=== PATIENT | male | born 1970 | race Caucasian/White ===

== ENCOUNTER 2025-04-14 08:50 | Emergency (ER) | payer BC, SELFPAY ==
[2025-04-14 08:52] VITALS: BP 112/80
[2025-04-14 09:24] VITALS: BMI 28.5
--- NOTE | 2025-04-14 10:23 | ED.GENMED ---
History of Present Illness
General
Chief Complaint: Musculo-Skeletal Complaint
Time Seen by Provider: 04/14/25 09:55
History of Present Illness
History of Present Illness:
Patient is a 55-year-old man with recent MT status post stent presenting to the emergency department Flare. Patient states about a week after the MT he developed a gout flare of his right foot and knee. He does have history of gout. He went to
[facility] who started him on colchicine and prednisone. He finished the prednisone last week. Symptoms have been worsening. He states that his foot has improved but his right knee is worse. No fevers chills. No redness or warmth. No traumatic
events. He is on a blood thinner secondary to the MT so he cannot take NSAIDs. He is not on a uric acid lowering medication. No known tick bites. This does feel similar to prior gout flares.
Phy Exam
Physical Exam
Physical Exam:
GENERAL: in no acute distress
HEENT: normocephalic, extraocular movements intact, moist oral mucosa
NECK: normal inspection
RESPIRATORY: no respiratory distress
CARDIOVASCULAR: regular rate and rhythm
EXTREMITIES: Right knee swelling, no warmth, no redness, right foot slightly swollen though per patient improving.
NEUROLOGIC: awake and alert, moves all extremities
SKIN: warm
Course
Orders/Labs/Results
Orders:
Orders
04/14/25 10:18
CR Knee- Right 4 Or More View* Urgent
Comment:
Reason For Exam: swelling
04/14/25 10:25
Oxycodone [Roxicodone] 5 mg PO NOW STA
04/14/25 12:40
Prednisone [Deltasone] 60 mg PO NOW STA
Vital Signs
Initial and Last Documented VS:
Initial Vital Signs
Temp Pulse Resp BP Pulse Ox
98.3 F 74 18 112/80 98
04/14/25 08:52 04/14/25 08:52 04/14/25 08:52 04/14/25 08:52 04/14/25 08:52
Last Documented Vital Signs
Temp Pulse Resp BP Pulse Ox
98.3 F 74 18 112/80 98
04/14/25 08:52 04/14/25 08:52 04/14/25 08:52 04/14/25 08:52 04/14/25 10:25
MDM/Problems Addressed
Differential Diagnosis Includes:
Patient is a 55-year-old man presenting to the emergency department with right knee swelling. On arrival patient is afebrile. On exam he does have significant swelling of the right knee. It is not warm. History exam less likely to be septic
arthritis. Likely gout. No traumatic events to suggest fracture. Will obtain x-ray. Will complete arthrocentesis. Will pain control.
*Pulse Oximetry
SaO2: 98
Oxygen Mode of Delivery: Room air
Patient hypoxic: no
*Critical Care Note
Total Time (30-74mins, 75-104mins- exclusive of procedures): Not Applicable
Update Note
Update Note:
X-ray per my interpretation with no obvious fracture. Small joint effusion. We did attempt arthrocentesis though unsuccessful secondary to patient unable to tolerate it. I did discuss with [facility] orthopedics who is in agreement with treating as
gout. Will give steroid for 5 days then taper. Patient will follow-up with systems accountant about when he can add an anti-inflammatory to his regimen. He will follow-up with PCP to get on a uric acid lowering medication. All questions answered.
Patient stable for discharge.
ED Attending Note
-
Portions of this chart may have been created with voice recognition software.� Occasional wrong word or��sound alike� substitutions may have occurred due to the inherent limitations of voice recognition software.
Discharge Plan
Departure
Patient Disposition: Home (Routine Discharge)
Date of Disposition: 04/14/25
Time of Disposition: 12:40
Patient with high blood pressure during this ER visit?: No
Discharge Problem:
Gout
Instructions: Gout - ED (DC)
Prescriptions:
New
prednisone 20 mg tablet
60 mg PO DAILY Qty: 21 0RF
Rx Instructions:
60mg x5 days
40 x3 days
20x 3 days
Referrals:
Gaurav Correia MD [Family Provider]
Activity Restrictions/Additional Instructions:
You were seen in the Emergency Department today for gout please make sure you take the steroids as prescribed. Your first dose was given here. Please follow-up with your systems accountant to determine when you can start anti-inflammatory medications.
We would like for you to follow up with your primary care physician for further evaluation. If you experience fever, worsening of your symptoms, or develop any other new or concerning symptoms, please return to the Emergency Department immediately.
Please see the attached sheet for additional information.
Interventions
Interventions:
*Risk Screen - Suicide Last Done: 04/14/25 08:52
*General Assessment Last Done: 04/14/25 09:24
*Neglect/Abuse Screening Last Done: 04/14/25 08:52
*ED- Fall Risk Assessment Last Done: 04/14/25 09:24
*ED COVID-19 Vaccine History Last Done: 04/14/25 09:24
*ED Influenza Vaccine History Last Done: 04/14/25 09:24
ED-Musculoskeletal Assessment Last Done: 04/14/25 09:24
Discharge Date and Time
Print Language: POLISH
[2025-04-14] MEDS: ROXICODONE 5 MG PO (10:33)
[2025-04-14] MEDS: DELTASONE 60 MG PO (12:50)
[2025-04-14 12:51] VITALS: BP 118/74
== END 2025-04-14 12:57 | disposition home or self-care (01) ==
LOC: EMR 08:50
PROVIDERS: EMERGENCY PHYSICIAN Student in an Organized Health Care Education/Training Program; FAMILY PHYSICIAN Student in an Organized Health Care Education/Training Program
DX: M10.071 Idiopathic gout, right ankle and foot (principal); I25.2 Old myocardial infarction
CPT/HCPCS: 99283; 73564

== ENCOUNTER 2025-05-16 22:20 | Inpatient (IN) | payer BC, SELFPAY ==
[2025-05-16 16:39] VITALS: BP 124/87
--- NOTE | 2025-05-16 19:29 | ED.MUSCINJ ---
HPI-Injury
General
Chief Complaint: Musculo-Skeletal Complaint
Source: patient
Exam Limitations: none
Time Seen by Provider: 05/16/25 18:41
History of Present Illness-Injury
Initial Injury comments:
55-year-old male presents with progressively worsening pain and swelling to the right knee starting about 5 days ago and getting worse. He notes chills at times. No known injury. He states he was thought to have gout 2 months ago. He has been on
prednisone for that. 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 He is on aspirin and Brilinta. No chest pain or shortness of breath. He recently got back from a trip from [place]
Phy Exam
Physical Exam
Physical Exam:
General: Well-appearing male no acute respiratory distress
HEENT normal cephalic atraumatic
Musculoskeletal exam: Right knee with large effusion tender diffusely with overlying erythema. He is about 10 degrees shy of full extension and flexes to about 50 or 60 degrees.
Skin: Erythema noted over the anterior right borges spreading into the lateral aspect of the right kneeNo open wounds
Vascular: No calf tenderness 2+ DP pulse right foot
Injury Course
Orders/Labs/Results
Orders:
Orders
05/16/25 16:45
CR Knee- Right 4 Or More View* Urgent
Comment:
Reason For Exam: swelling
05/16/25 16:53
US Legs, Right [US Periph Venous LOWER Ext RT] Urgent
Comment:
Reason For Exam: swelling, pain
05/16/25 19:27
Body Fluid Cell Count Urgent
What is the Body Fluid: joint
Date Specimen was Collected: 05/16/25
Time Specimen was Collected: 19:05
Comment: with DIFF
Body Fluid Crystals Urgent
What is the Body Fluid: joint
Date Specimen was Collected: 05/16/25
Time Specimen was Collected: 19:05
CRP [C-Reactive Protein] Urgent
Complete Blood Count/With Diff Urgent
Comprehensive Metabolic Panel Urgent
Lyme Progressive Urgent
Sed Rate [Erythrocyte Sed Rate] Urgent
Fluid Culture with Gram Stain Urgent
XOCHILT Source: Joint Fluid
Specimen Description:
Date Specimen was Collected: 05/16/25
Time Specimen was Collected: 19:05
Gram Stain Stat
XOCHILT Source: Joint
Specimen Description:
Date Specimen was Collected: 05/16/25
Time Specimen was Collected: 19:05
05/16/25 21:10
Vancomycin [Vancocin] 2,000 mg 0.9% Sodium Chloride 500 ml [Nss] 500 ml IV NOW
Abnormal Lab Results
05/16/25
19:27
WBC 14.8 H 10^3/uL
(4.8-10.8)
RBC 4.53 L 10^6/uL
(4.70-6.10)
Abs Immat Gran (auto) 0.1 H 10^3/uL
(0-0.05)
Absolute Neuts (auto) 10.1 H 10^3/uL
(1.4-6.5)
Absolute Monos (auto) 1.8 H 10^3/uL
(0.1-0.6)
Immature Gran % 0.8 H %
(0-0.5)
Lymphocytes % 17.9 L %
(20.5-51.1)
Monocytes % 12.1 H %
(1.7-9.3)
ESR 42 H mm/hour
(0-20)
Sodium 134 L mmol/L
(135-145)
Glucose 107 H mg/dl
(70-99)
ALT 59 H U/L
(0-50)
C-Reactive Protein 265.00 H mg/L
(0.0-10.00)
05/16/25 19:27
05/16/25 19:27
MDM/Problems Addressed
Differential Diagnosis Includes:
I rechecked the patient's temperature in the room and is 100.8. Right knee is with effusion and tender and erythema. Consider septic arthritis although etiology of this would be unclear versus gouty arthritis versus hemarthrosis
X-ray of the right knee and ultrasound of the right leg was ordered through triage which I reviewed both. X-ray demonstrates a large effusion but no obvious acute bony abnormality. Ultrasound of the right leg is positive for Stuart's cyst but no
DVT.
Verbal consent was obtained for aspiration of the right knee to provide therapeutic and diagnostic purposes. Right knee was sterilely aspirated using 18-gauge needle. A total of approximately 80 cloudy yellow-colored fluid was aspirated. This
will be sent for fluid analysis including cell count Gram stain and culture and crystal testing.
Labs ordered on the blood including Lyme test, sed rate CRP CBC
*Pulse Oximetry
SaO2: 96
Oxygen Mode of Delivery: Room air
Patient hypoxic: no
*Critical Care Note
Total Time (30-74mins, 75-104mins- exclusive of procedures): Not Applicable
Update Note
Update Note:
Labs reviewed. White blood cell count 14.8. Sed rate 42 CRP 265. Cell count in the fluid analysis demonstrates white cells of 60,200 with 91% PMNs. There are monosodium urate crystals noted in the fluid analysis. Patient does have a fever here
with leukocytosis. Tach arthritis versus gouty arthritis on the differential. Discussed with orthopedics. Orthopedics recommended keeping in hospital starting on IV antibiotics pending cultures of the joint fluid. Vancomycin ordered Tylenol
ordered additional pain control ordered.
ED Attending Note
-
Portions of this chart may have been created with voice recognition software.� Occasional wrong word or��sound alike� substitutions may have occurred due to the inherent limitations of voice recognition software.
Discharge Plan
Departure
Patient Disposition: Admit
Date of Disposition: 05/16/25
Time of Disposition: 21:25
Presentation/result/management discussed w/ accepting MD/DO: Hospitalist
Discharge Problem:
possible septic arthritis
Prescriptions:
No Action
prednisone 20 mg tablet
60 mg PO DAILY Qty: 21 0RF
Rx Instructions:
60mg x5 days
40 x3 days
20x 3 days
Referrals:
Gaurav Correia MD [Family Provider]
Interventions
Interventions:
*Risk Screen - Suicide Last Done: 05/16/25 16:39
*General Assessment Last Done: 05/16/25 16:39
*Neglect/Abuse Screening Last Done: 05/16/25 16:39
*ED COVID-19 Vaccine History Last Done: 05/16/25 19:53
*ED Influenza Vaccine History Last Done: 05/16/25 19:53
[facility] Fall Risk Assessment Tool Last Done: 05/16/25 19:52
ED-Musculoskeletal Assessment Last Done: 05/16/25 19:31
Discharge Date and Time
Print Language: TURKISH
[2025-05-16 19:41] LABS: Hematocrit 40.2 % (39.0-52.0); Hemoglobin 14.0 g/dL (13.0-18.0); Mean Corp Hgb Conc. 34.8 g/dL (33.0-37.0); Mean Corpuscular Volume 88.7 fL (80.0-94.0); Nucleated Red Blood Cells % 0 % (-); Platelet Count 251 10^3/uL (130-400); Red Cell Dist. Width 13.1 % (11.5-14.5)
[2025-05-16 19:52] VITALS: BMI 27.3
[2025-05-16 19:58] LABS: ALT (SGPT) 59 U/L (0-50); AST (SGOT) 33 U/L (17-59); Albumin 4.4 g/dl (3.5-5.0); Alkaline Phosphatase 64 U/L (38-126); Blood Urea Nitrogen 15 mg/dl (9-20); Calcium 9.5 mg/dl (8.4-10.2); Carbon Dioxide 25 mmol/L (22-30); Chloride 101 mmol/L (98-107); Estimated Creatinine Clearance 78 ml/min; Glucose 107 mg/dl (70-99); Potassium 4.2 mmol/L (3.5-5.1); Sodium 134 mmol/L (135-145); Total Protein 7.4 g/dl (6.3-8.2); eGFR > 60.00
[2025-05-16 20:17] LABS: Body Fluid Second Tech EYM; C-Reactive Protein 265.00 mg/L (0.0-10.00)
[2025-05-16] MEDS: TYLENOL 1000 MG PO (21:39)
[2025-05-16] MEDS: DILAUDID 0.5 MG IV (21:39)
[2025-05-16] MEDS: VANCOCIN 540 MG IV (21:39)
--- NOTE | 2025-05-16 21:40 | HPS.HSE ---
Addendum entered and electronically signed by Jad Morales DO 05/16/25 23:40:
Patient seen and examined independently. Agree with findings and plan as set forth by TAMIR Bergman.
Patient is a 55y M with PMH significant for ASCVD and gout who presents to ED complaining of R knee pain and swelling. Patient states that symptoms started last Thursday. No known injury or trauma. He has had intermittent chills at home. His
pain and associated redness has increased since that time and he presented to the ED this evening for further evaluation.
Patient notes that he had a flare of gout involving the R foot and R knee about one month ago. This took almost 3 weeks to resolve.
He is s/p PTCA with stent in March of this year.
Ass:
Right Knee Pain / Swelling
ASCVD
Gout
Plan:
Admit for further evaluation and treatment.
Symptoms concerning for septic arthritis.
Tap done in the ED does show monosodium urate crystal / gout.
Also > 60k WBC in synovial fluid. Grams stain is pending.
IV abx and pain control for now.
Ortho consulted for additional recommendations.
If Grams stain / cultures negative - begin systemic steroids for gout therapy.
? intra-articular steroid if no evidence of infectious etiology.
Continue DAPT given recent PCI / stent (March).
Original Note:
Family Physician
-
Family Physician: Gaurav Correia MD
Chief Complaint
-
right knee edema, redness
History of Present Illness
55-year-old male with pMH for DC, GOUT presented to us with progressively worsening pain and swelling,redness to the right knee since Thursday. patient stated worsening redness and swelling. he noted chills at home. denied any trauma. denied ZHANG,
dizzy or syncope.denied chest pain, sob, congestion, cough. denied abdominal pain,n,v,d. denied dysuria or hematuria. starting about 5 days ago and getting worse. He notes chills at times. No known injury. He states that he was here in March
due to pain in the same knee and was treated with colchicine and prednisone with improvement.
concern for septic arthritis. vanco given in ER. admitting for further management.
Medical History
Past Medical History
Past Medical History: Reports Other
Additional Past Medical History:
DC, GOUT
Past Surgical History: Reports None
Social History
Tobacco: Non-smoker
Alcohol: Occasional
Drug: None
Personal:
Living: With Family
Family History
Family History: Not pertinent
Allergies / Home Medications
Allergies reflects when Allergies were last updated in [facility].
Home Medications with original date entered in [facility]
Allergy/Medication List:
Allergies
Allergy/AdvReac Type Severity Reaction Status Date / Time
No Known Allergies Allergy Verified 05/16/25 16:44
Home Medications
prednisone 20 mg tablet 60 mg (3 x 20 mg) PO DAILY #21 tabs 04/14/25
Review of Systems
-
Constitutional: Reports No Symptoms, Fatigue and Chills
EENT: Reports No Symptoms
Respiratory: Reports No Symptoms
Cardiac: Reports No Symptoms
Abdomen/GI: Reports No Symptoms
: Reports No Symptoms
Musculoskeletal: Reports Other (right knee pain, swelling)
Skin: Reports No Symptoms
Neurological: Reports No Symptoms
Endocrine: Reports No Symptoms
Hematologic/Lymphatic: Reports No Symptoms
Psych: Reports No Symptoms
Physical Exam
Vital Signs
Vital Signs
Temp Pulse Resp BP Pulse Ox
100.8 F H 80 20 124/87 96
05/16/25 19:01 05/16/25 16:39 05/16/25 16:39 05/16/25 16:39 05/16/25 19:33
Physical Exam
General: Well Developed, Well Nourished and No Apparent Distress
HEENT: NormoCephalic, Moist mucous membranes and Atraumatic
Respiratory: Clear
Cardiac: S1/S2 and Regular Rhythm; No Murmur or Rub
GI: Soft, Non Tender, Non Distended and Normal Bowel Sounds; No Organomegaly
Rectal: Deferred by Provider
Musculoskeletal: No Clubbing, No Cyanosis and Other (right knee swelling, pain, redness)
Skin: No Rash
Neuro: AO x 3 and Nonfocal/grossly intact
Psych: Calm
Laboratory Results
-
05/16/25 19:27
05/16/25 19:27
Laboratory Results
Total Bilirubin 1.1 mg/dl (0.2-1.3) 05/16/25 19:27
AST 33 U/L (17-59) 05/16/25 19:27
ALT 59 U/L (0-50) H 05/16/25 19:27
Alkaline Phosphatase 64 U/L (38-126) 05/16/25 19:27
Data Reviewed
-
Diagnostic Radiology: Report Reviewed by me
Lab Data: Labs Reviewed by me
Impression/Plan
-
#right knee effusion, erythema concern for septic arthritis
-joint fluid sent an cultures pending
-iv Vanco and ceftriaxone continued
-ortho consulted
-wbc 14.8, temp 100.8
-ESR 42,CRP 265.00
-Duplex with no evidence of deep venous thrombosis of the right lower extremity.Small popliteal/Stuart's cyst.Findings likely representing complex suprapatellar effusion.
-knee x ray with No acute fracture or dislocation.Large knee joint effusion.
#DC
-on asa
-hold Brilinta
-statin
#DVT prophylaxis
-scd
#CODE status
-full code
[2025-05-16 22:00] VITALS: BP 122/74
[2025-05-16 23:05] VITALS: BP 133/72; BMI 27.9
[2025-05-17] MEDS: STERILE WATER FOR INJECTION 10 ML IV ×2 (00:07→23:41)
[2025-05-17] MEDS: ROCEPHIN 1000 MG IV ×2 (00:07→23:41)
--- NOTE | 2025-05-17 00:57 | PTCARENOTE ---
patient arrived from ED via stretcher. stand and pivot to bed with assistance from staff. assessment completed. AOx3. oriented to room. POC ongoing.
[2025-05-17 06:45] LABS: Hematocrit 37.6 % (39.0-52.0); Hemoglobin 12.9 g/dL (13.0-18.0); Mean Corp Hgb Conc. 34.3 g/dL (33.0-37.0); Mean Corpuscular Volume 90.0 fL (80.0-94.0); Platelet Count 212 10^3/uL (130-400); Red Cell Dist. Width 13.2 % (11.5-14.5)
[2025-05-17 07:00] VITALS: BP 132/73
[2025-05-17 07:42] LABS: Blood Urea Nitrogen 12 mg/dl (9-20); Calcium 8.9 mg/dl (8.4-10.2); Carbon Dioxide 28 mmol/L (22-30); Chloride 106 mmol/L (98-107); Estimated Creatinine Clearance 78 ml/min; Glucose 100 mg/dl (70-99); Potassium 4.3 mmol/L (3.5-5.1); Sodium 138 mmol/L (135-145); eGFR > 60.00
[2025-05-17] MEDS: BRILINTA 90 MG PO ×2 (07:56→20:10)
[2025-05-17] MEDS: LOW STRENGTH ASPIRIN 81 MG PO (07:56)
[2025-05-17] MEDS: LIPITOR 80 MG PO (07:56)
[2025-05-17] MEDS: TYLENOL 650 MG PO ×3 (08:04→21:30)
--- NOTE | 2025-05-17 09:17 | PHA.VAN.IN ---
Assessment
- Assessment
Renal Function: Unknown baseline
Concomitant Antimicrobials: CEFTRIAXONE
AUC Dosing Plan
- Dosing Variables
Dosing Weight (kg): 88.22
Dosing CrCl (ml/min): 78
Vd coefficient (L/kg): 0.7
- Empiric Dosing
Initial / Loading Dose: 2000 MG-05/16 21:39
Maintenance Regimen: 1000 MG Q12
Estimated AUC (mcg*h/mL): 485
Estimated Peak (mcg*h/mL): 28.7
Estimated Trough (mcg/ml): 13.4
Estimated Half Life (H): 10
- Monitoring
No levels ordered at this time: CONSIDER LEVELS THE NEXT FEW DAYS
Pharmacokinetics Vancomycin I
- -
Patient Age: 55
Patient Sex: Male
Vancomycin Day #: 1
Indication: Skin And Soft Tissue
Requesting Provider: STACI FERNANDES
Pertinent Antimicrobial Allergies:
NKDA
Height / Weight:
Height 5 ft 10 in
Actual Weight 88.224 kg
- Vital Signs / Lab Results
Temp Pulse Resp BP Pulse Ox
99.0 F 70 16 132/73 97
05/17/25 07:00 05/17/25 07:00 05/17/25 07:00 05/17/25 07:00 05/17/25 07:00
Lab Results - Hematology
05/16/25 05/17/25
19:27 06:08
WBC 14.8 H 9.6
Lab Results - Chemistry
05/16/25 05/17/25
19:27 06:08
BUN 15 12
Creatinine 1.1 1.1
Estimated Creat Clear 78 78
Albumin 4.4
--- NOTE | 2025-05-17 09:22 | W.PN.UPDATE ---
Update Note
Progress Note Update
*Full H&P to follow*
55-year-old male right knee pain and effusion with positive aspiration for gout however with positive monosodium urate crystals and elevated white count with elevated PMN ratio concerning for septic arthritis. Aspiration performed prior to
antibiotics. Will continue with close monitoring of aspiration results for consideration of operative debridement and irrigation for septic arthritis.
--- NOTE | 2025-05-17 11:03 | W.PN.HOSP.TC ---
Today's Communication/Plan
-
see outlined plan below
Assessment / Plan
Assessment / Plan
Assessment:
R knee pain with effusion
- Knee Xray: No acute fracture or dislocation
- ESR 42,CRP 265.00
- s/p aspiration /3 with elevated WBC >15713 and high PMN ratio
- ddx: gouty arthritis (monosodium urate crystals seen) vs septic arthritis
- follow GS/Culture; on empiric Vancomycin/Rocephin. May need washout if positive culture
- if cultures negative, can start steroids + colchicine for Articular gout flare
- Ortho following
- would benefit from OP Rheum evaluation for chronic management.
CAD hx of [place] 03/2025 s/p stent
- on ASA/Brilinta/Statin
- if washout planned and requiring Brilinta hold, will involve Cardiology service. Reviewed with Ortho
DVT ppx: SCDs
Code: Full
Anticipated Discharge: > 48 hours
Subjective/Interval History
-
Date of Service: May 17, 2025
reports mild knee pain - using Tylenol with good effect
R knee with swelling
denies fever/chills
Objective Data
-
Labs:
Laboratory Results
05/17/25
06:08
WBC 9.6
Hgb 12.9 L
Hct 37.6 L
Plt Count 212
Sodium 138
Potassium 4.3
Chloride 106
Carbon Dioxide 28
BUN 12
Creatinine 1.1
Glucose 100 H
Calcium 8.9
Vital Signs:
Vital Signs
Temp Pulse Resp BP Pulse Ox
99.0 F 70 16 132/73 97
05/17/25 07:00 05/17/25 07:00 05/17/25 07:00 05/17/25 07:00 05/17/25 07:00
I&O
05/16/25 05/17/25 05/18/25
06:59 06:59 06:59
Intake Total 480 / 480
Output Total 825 / 825
Balance -345 / -345
Physical Exam
-
General: No Apparent Distress
HEENT: Normocephalic and Atraumatic
Respiratory: Negative Wheezes
Cardiac: Regular Rhythm and S1/S2
GI: Soft and Nontender
Genito-urinary: No Costovertebral Tender
Musculoskeletal: Other (R knee joint effusion, decreased ROM)
Neuro: AO x 3
Psych: Calm
Data Reviewed
-
Total Time Spent with Patient (in minutes): 44
Labs: Labs Reviewed by me
[2025-05-17] MEDS: VANCOCIN 200 IV ×2 (11:59→17:01)
--- NOTE | 2025-05-17 14:50 | CM ---
Patient seen at bedside
IA completed
Dx: R knee pain with effusion
PMH: ASCVD and gout
Patient lives in a 2 story home with his , [address], flight of stairs to bedroom/bathroom
PLOF: independent, recently using crutches
Denies VN/Rehab, although states has a script for outpatient cardiac rehab (recent MO)
PCP: Dr. Correia
Pharmacy: [facility]
PLAN: Home, CM to continue to follow for needs
[2025-05-17 15:00] VITALS: BP 123/77
--- NOTE | 2025-05-17 19:24 | CON.ORTHO ---
Consultation
-
Date/Time Consultation Requested: 05/16/2025 2313
Date/Time Consultation Performed: 05/17/2025 0815
Requesting Provider: TAMIR Amado
Performing Provider: PETER Padilla, Dr. Rl Valiente
Reason for Consultation: R knee effusion
Consultation - Orthopedics
History
55M presented to ED regarding his right knee with recurrent effusion and pain. Onset of symptoms in mid-March initially seen at [facility] urgent care with suspect crystal arthropathy of his right knee and foot with a reported history of gout. He
had short term improvement of his foot but not of his knee and was seen at ED in late March with persisting symptoms of the right knee. He underwent an unsuccesful aspiration attempt of his right knee and was discussed with [facility] ortho who
recommended treatment for gout with high dose prednisone. He denies other aspirations or injections performed other than previous ED attempt. He has had some intermittent fevers/chills and worsend pain; he underwent a successful aspiration at
ED yesterday. He reports no histroy of chronic knee pain or prodromal symptoms. Reports mild improvement since aspiration
Allergies / Home Medications
Allergy/AdvReac Type Severity Reaction Status Date / Time
No Known Allergies Allergy Verified 05/16/25 16:44
�Medication �Instructions �Recorded
aspirin 81 mg chewable tablet 81 mg PO DAILY 05/16/25
atorvastatin 80 mg tablet 80 mg PO DAILY 05/16/25
ticagrelor 90 mg tablet 90 mg PO BID 05/16/25
Past Medical History: Reports Other
Additional Past Medical History:
AR, GOUT
Past Surgical History: Reports None
Social History
Tobacco: Non-smoker
Alcohol: Occasional
Drug: None
Personal:
Living: With Family
Family History
Family History: Not pertinent
Vital Signs / Lab Results
Temp Pulse Resp BP Pulse Ox
100.7 F H 74 16 123/77 98
12/03/25 15:00 05/17/25 15:00 05/17/25 15:00 05/17/25 15:00 05/17/25 15:00
PE:
General: WNWD NAD, STRONG
MSK: Focused exam of the right knee shows skin grossly intact with area of previous aspiration; large effusion. No significant erythema or edema. Knee ROM 10-70 and discomfort throughout. NVI L3-S1
IMAGING:
X-rays of the knee show well preserved joint spaces with no acute osseous abnormalities. No chondrocalcinosis
Labs:
ESR 42
CRP 265
WBC 14.8-->9.6
Aspiration:
WBCs: 62k
PMNs: 91.5
Positive monosodium urate crystals
05/17/25 06:08
05/17/25 06:08
Assessment / Plan
55M with recurrent knee pain and effusion with positive gout however with aspiration cell count with concerning results for possible infectious septic arthritis
-discussed results with patient; no current growth on cultures or pathology seen on gram stain and no indication patient was on antibiotics prior to his IV antibiotics being started on admission
-recommend continued relative rest and treatment for gout per primary.
-pending results, reviewed consideration of open versus arthroscopic debridement and irrigation of his knee.
-will make NPO @ MN as a precaution as potential culture results tomorrow if operative intervention is indicated.
-he may be WBAT in the interim but would avoid aggressive ROM for the time being pending workup results
Ortho surg will continue to follow.
[2025-05-17 23:00] VITALS: BP 128/69
[2025-05-18] MEDS: TYLENOL 650 MG PO ×2 (04:42→11:42)
[2025-05-18] MEDS: VANCOCIN 200 IV ×2 (05:17→17:51)
[2025-05-18 06:40] LABS: Hematocrit 35.5 % (39.0-52.0); Hemoglobin 12.3 g/dL (13.0-18.0); Mean Corp Hgb Conc. 34.6 g/dL (33.0-37.0); Mean Corpuscular Volume 90.3 fL (80.0-94.0); Nucleated Red Blood Cells % 0 % (-); Platelet Count 243 10^3/uL (130-400); Red Cell Dist. Width 13.1 % (11.5-14.5)
[2025-05-18 07:29] LABS: Blood Urea Nitrogen 12 mg/dl (9-20); Calcium 8.9 mg/dl (8.4-10.2); Carbon Dioxide 27 mmol/L (22-30); Chloride 105 mmol/L (98-107); Estimated Creatinine Clearance 86 ml/min; Glucose 132 mg/dl (70-99); Potassium 4.0 mmol/L (3.5-5.1); Sodium 136 mmol/L (135-145); eGFR > 60.00
[2025-05-18 07:39] VITALS: BP 120/75
--- NOTE | 2025-05-18 07:54 | W.PN.UPDATE ---
Update Note
Progress Note Update
Patient reports this morning that his right knee pain and swelling still persist. He has had Tmax 100.7 �F-large effusion noted with warmth and trace erythema. Passive motion 0-80 degrees with pain in the extreme of flexion. Calf is soft and
nontender. Distal neurovascular was intact. WBC normal, ESR 42, CRP 265.00 and WBC and cell count 60, 200 with positive monosodium urate crystals. He is currently on vancomycin/Rocephin. Cultures this morning are still pending and hopefully they
become available today. If cultures remain negative treat for gout if positive he might require right knee washout. Orthopedics will continue to follow.
[2025-05-18] MEDS: LOW STRENGTH ASPIRIN 81 MG PO (09:04)
[2025-05-18] MEDS: LIPITOR 80 MG PO (09:04)
[2025-05-18] MEDS: BRILINTA 90 MG PO ×2 (09:08→20:34)
--- NOTE | 2025-05-18 10:40 | PHA.VAN.FU ---
Vancomycin Assessment / Plan
- Assessment
Renal Function: Stable
WBC's are: Trending Down
Concomitant Antimicrobials: CEFTRIAXONE
- Dosing Plan
Continue: 1 GRAM Q12HR
- Monitoring Plan
No level(s) ordered at this time: CONSIDER NEXT FEW DAYS
- Follow Up
Pharmacy will continue to follow.
Vancomycin Follow UP
- -
Patient Age: 55
Patient Sex: Male
Vancomycin Day #: 2
Indication: Skin And Soft Tissue
Requesting Provider: STACI FERNANDES
Pertinent Antimicrobial Allergies:
NKDA
Height / Weight:
Height 5 ft 10 in
Actual Weight 88.224 kg
- Vital Signs / Lab Results
Temp Pulse Resp BP Pulse Ox
98.3 F 61 17 120/75 97
05/18/25 07:39 05/18/25 07:39 05/18/25 07:39 05/18/25 07:39 05/18/25 07:39
Lab Results - Hematology
05/16/25 05/17/25 05/18/25
19:27 06:08 06:27
WBC 14.8 H 9.6 9.8
Lab Results - Chemistry
05/16/25 05/17/25 05/18/25
19:27 06:08 06:27
BUN 15 12 12
Creatinine 1.1 1.1 1.0
Estimated Creat Clear 78 78 86
Albumin 4.4
Microbiology Results
05/16/25 19:27 Gram Stain - Preliminary
Joint Fluid
--- NOTE | 2025-05-18 10:51 | W.PN.HOSP.TC ---
Today's Communication/Plan
-
await culture to determine next steps
Assessment / Plan
Assessment / Plan
Assessment:
R knee pain with effusion
- Knee Xray: No acute fracture or dislocation
- ESR 42, CRP 265.00
- s/p aspiration / with elevated WBC >57017 and high PMN ratio
- ddx: gouty arthritis (monosodium urate crystals seen) vs septic arthritis
- follow GS/Culture; on empiric Vancomycin/Rocephin. May need washout if positive culture
- if cultures negative, can start steroids + colchicine for Articular gout flare. Can also consider intra-articular steroids
- Ortho following
- would benefit from OP Rheum evaluation for chronic management.
CAD hx of [place] 03/2025 s/p stent
- follows with Dr. Pope
- on ASA/Brilinta/Statin
- if washout planned and requiring Brilinta hold, will involve Cardiology service. Reviewed with Ortho.
DVT ppx: SCDs
Code: Full
Anticipated Discharge: 24 - 48 hours
Subjective/Interval History
-
Date of Service: May 18, 2025
Knee effusion stable
febrile last evening to Tmax: 100.7
Objective Data
-
Labs:
Laboratory Results
05/18/25
06:27
WBC 9.8
Hgb 12.3 L
Hct 35.5 L
Plt Count 243
Sodium 136
Potassium 4.0
Chloride 105
Carbon Dioxide 27
BUN 12
Creatinine 1.0
Glucose 132 H
Calcium 8.9
Vital Signs:
Vital Signs
Temp Pulse Resp BP Pulse Ox
98.3 F 61 17 120/75 97
05/18/25 07:39 05/18/25 07:39 05/18/25 07:39 05/18/25 07:39 05/18/25 07:39
I&O
05/17/25 05/18/25 05/19/25
06:59 06:59 06:59
Intake Total 480 / 480 1000 / 1000
Output Total 825 / 825 751 / 751
Balance -345 / -345 249 / 249
Physical Exam
-
General: No Apparent Distress
HEENT: Normocephalic and Atraumatic
Respiratory: Negative Wheezes
Cardiac: Regular Rhythm and S1/S2
GI: Soft and Nontender
Genito-urinary: No Costovertebral Tender
Musculoskeletal: Other (R knee joint effusion, decreased ROM)
Neuro: AO x 3
Psych: Calm
Data Reviewed
-
Total Time Spent with Patient (in minutes): 41
Labs: Labs Reviewed by me
--- NOTE | 2025-05-18 12:23 | CON.ID ---
Consultation
-
Date/Time Consultation Requested: 05/17/2025 1803
Date/Time Consultation Performed: 05/18/2025 1220
Requesting Provider: Dr. Ramírez
Performing Provider: Dr. Jack
Reason for Consultation: Septic arthritis
Chief Complaint / Past History
History of Present Illness
Ferny Reeder is a 55-year-old man with a significant past medical history of gout being evaluated at the request of Dr. Ramírez regarding possible right knee septic arthritis. History is obtained from chart review, along with patient interview.
Patient presented to the emergency room at [facility] on 04/14 and at that time reported that he had been seen at [facility] and was started on colchicine and prednisone. Despite continuing colchicine his symptoms had worsened in his right
knee, but his foot had improved. Ultimately he was discharged to home to continue with colchicine and was placed on a prednisone taper.
He presents back to the emergency room on 05/16 secondary to worsening pain in the right knee which started 5 days prior. He underwent arthrocentesis, with the finding of monosodium urate crystals, but the marked synovial fluid white count raised
concern for possible septic arthritis, and Infectious Diseases is asked to comment on further antimicrobial therapy.
No history of tick bites that he can recall. No significant tick exposure. Travel significant only for that to [place] over the . No history of rash. No significant erythema of the knee. At this time the knee remains
exquisitely tender to touch.
Past History
Additional Past Medical History:
CAD; Hx [place]
Gout
Past Surgical History: None
Allergy History:
No Known Allergies Allergy (Verified 05/16/25 16:44)
Medications Reviewed: Yes
Current Antibiotics:
Vancomycin (dosing per pharmacy)
Ceftriaxone
Social History
Tobacco: Non-Smoker
Alcohol: Occasional
Drug: None
Personal:
Living: With Family
Employment: Employed
Family History
Family History: Not Pertinent
Review of Systems
Vital Signs
Temp Pulse Resp BP Pulse Ox
98.3 F 61 17 120/75 97
05/18/25 07:39 05/18/25 07:39 05/18/25 07:39 05/18/25 07:39 05/18/25 07:39
Physical Exam
Physical Exam
Constitutional: No Acute Distress, Comfortable and Non-toxic
Head: Normocephalic
Eyes: Pupils Equal, Pupils Round, No Conjunctival Hemorrhage and Sclera Anicteric
Oral: No Thrush and No Ulcers
Cardiovascular: Regular Rate and S1/S2; Negative S3/S4
Pulmonary: Clear; Negative Wheezes, Rales or Rhonchi
Gastrointestinal: Soft, Non Tender, Non Distended and Normal Bowel Sounds
Genito-Urinary: Negative Haynes
Extremities: Negative Edema, Cyanosis or Erythema
Musculoskeletal: Joint Swelling (Right knee) and Joint Effusion (Right knee)
Skin: Warm and Dry; Negative Rash or Jaundice
Neurological: Awake and Alert
Psychological: Calm
.
Lab / Diagnostic Study Results
05/18/25 06:27
05/18/25 06:27
Abs Immat Gran (auto) 0.1 10^3/uL (0-0.05) H 05/18/25 06:27
Absolute Neuts (auto) 6.5 10^3/uL (1.4-6.5) 05/18/25 06:27
Absolute Lymphs (auto) 2.0 10^3/uL (1.2-3.4) 05/18/25 06:27
Absolute Monos (auto) 1.1 10^3/uL (0.1-0.6) H 05/18/25 06:27
Absolute Basos (auto) 0.1 10^3/uL (0-0.2) 05/18/25 06:27
Immature Gran % 0.5 % (0-0.5) 05/18/25 06:27
Neutrophils % 66.2 % (42.2-75.2) 05/18/25 06:27
Lymphocytes % 20.0 % (20.5-51.1) L 05/18/25 06:27
Monocytes % 11.0 % (1.7-9.3) H 05/18/25 06:27
Eosinophils % 1.6 % (0-6) 05/18/25 06:27
Basophils % 0.7 % (0-2) 05/18/25 06:27
ESR 42 mm/hour (0-20) H 05/16/25 19:27
C-Reactive Protein 265.00 mg/L (0.0-10.00) H 05/16/25 19:27
Microbiology Results
Micro:
05/16/25 19:27 Body Fluid Culture - Preliminary
Joint Fluid No Growth After 18-24 Hours
Gram Stain - Preliminary
SPEC : [id number] MASTER: 05/16/25-1926 STATUS: COMP REQ : [id number]
RECD: 05/16/25-193 [facility] [address]: Benjamin Clemente PA-C
ENTERED: [birth year]-[address]: Ivy FINCH,Sabina Navarro
ARTURO BLAS MD
ORDERED: BF Cell Count, BF Crystals
QUERIES: What is the Body Fluid joint
Comment with DIFF
Date Specimen was Collected 05/16/25
Time Specimen was Collected 1904
Test Result Flag Reference
BF Cell Count - - -
BF WBC - 70033 - - /CUMM
BF PMN - 91.5 - - %
BF Mononuclear - 8.5 - - %
BF Crystals - - -
- Monosodium urate crystals seen.
Imaging:
05/16/2025 Duplex ultrasound right lower extremity: no evidence of DVT
05/16/2025 X-ray right knee: No acute fracture or dislocation. The joint spaces are maintained. Large suprapatellar joint effusion. Small suprapatellar enthesophyte. Tiny patellar marginal osteophytes. The soft tissues are unremarkable.
Assessment / Plan
Recurrent gout flare right knee
Leukocytosis; improved
Right knee pain secondary to above
Recommendations:
Right knee arthrocentesis cultures currently pending; will continue to monitor.
Continue with empiric antibiotics for today.
Follow white count and temperature.
If cultures remain negative, we will discontinue further antibiotics.
[2025-05-18 13:32] LABS: Lyme Antibody Screen, EIA Negative (Negative)
[2025-05-18 15:41] VITALS: BP 136/74
--- NOTE | 2025-05-18 15:46 | CM ---
patient to continue with empiric antibiotics
awaiting cx
PLAN: Home, CM to watch for VN/abx needs
[2025-05-18] MEDS: ROXICODONE 2.5 MG PO ×2 (16:29→22:05)
--- NOTE | 2025-05-18 17:33 | W.PN.UPDATE ---
Update Note
Progress Note Update
Patient seen at bedside with his biju. Cultures right knee from 18 hours have no growth thus far. If cultures remain negative tomorrow aspiration and steroid injection.
--- NOTE | 2025-05-18 18:00 | PTCARENOTE ---
at 15:31, patient reports Tylenol only effective for short while. pain level 6/[address] Darrell elizondo texted requesting stronger analgesia, perhaps Ultram. Dr. Ramírez ordered PRN Roxicodone and patient reports pain level 1/10 after (see
MAR), will continue to monitor.
[2025-05-18 22:15] VITALS: BP 129/74
[2025-05-19] MEDS: STERILE WATER FOR INJECTION 10 ML IV (00:11)
[2025-05-19] MEDS: ROCEPHIN 1000 MG IV (00:11)
[2025-05-19] MEDS: ROXICODONE 2.5 MG PO ×2 (02:43→08:58)
--- NOTE | 2025-05-19 02:45 | PTCARENOTE ---
While administering pain medication, patient states his L knee is starting to feel pain like how his R knee initially felt just before coming to the hospital. No edema or redness on L knee. SKETCH LINER Maryuri Rolon notified. No new orders at this time. Plan
of care ongoing.
[2025-05-19] MEDS: VANCOCIN 200 IV (05:33)
[2025-05-19 07:20] LABS: Blood Urea Nitrogen 11 mg/dl (9-20); Calcium 9.0 mg/dl (8.4-10.2); Carbon Dioxide 28 mmol/L (22-30); Chloride 102 mmol/L (98-107); Estimated Creatinine Clearance 78 ml/min; Glucose 122 mg/dl (70-99); Potassium 4.4 mmol/L (3.5-5.1); Sodium 135 mmol/L (135-145); eGFR > 60.00
[2025-05-19 07:42] VITALS: BP 125/74
[2025-05-19 07:42] LABS: Hematocrit 37.0 % (39.0-52.0); Hemoglobin 12.9 g/dL (13.0-18.0); Mean Corp Hgb Conc. 34.9 g/dL (33.0-37.0); Mean Corpuscular Volume 90.0 fL (80.0-94.0); Nucleated Red Blood Cells % 0 % (-); Platelet Count 295 10^3/uL (130-400); Red Cell Dist. Width 12.9 % (11.5-14.5)
[2025-05-19] MEDS: BRILINTA 90 MG PO (08:58)
[2025-05-19] MEDS: LIPITOR 80 MG PO (08:58)
[2025-05-19] MEDS: LOW STRENGTH ASPIRIN 81 MG PO (08:58)
--- NOTE | 2025-05-19 10:13 | W.PN.ID1 ---
Date of Service
Date of Service: May 19, 2025
Today's Communication
DC empiric Vanco, ceftriaxone.
Start gout treatment.
Assessment / Plan
Recurrent gout flare right knee
Polyarticular gout flare
Leukocytosis resolved
Recommendations:
Right knee arthrocentesis cultures negative to date.
DC empiric Vanco, ceftriaxone.
Start gout treatment.
Chief Complaint
-: Other (Knee pain)
Subjective / Review of Systems
In addition to right knee pain, now complains of right ankle and left knee pain.
Vital Signs / Physical Exam
Vital Signs
Vital Signs
Temp Pulse Resp BP Pulse Ox
99.1 F 68 16 125/74 96
05/19/25 07:42 05/19/25 07:42 05/19/25 07:42 05/19/25 07:42 05/19/25 07:42
Physical Exam
Constitutional: No Acute Distress
Cardiovascular: Regular Rate and S1/S2
Pulmonary: Clear
Gastrointestinal: Soft, Non Tender, Non Distended and Normal Bowel Sounds
Musculoskeletal: Other (R knee large effusion, no erythema. Left knee small effusion, no ertythema. R Ankle mild edema. )
Neurological: AO x 3
Objective Data
Lab Data
Lab Results
05/19/25 06:29
05/19/25 06:29
ESR 42 mm/hour (0-20) H 05/16/25 19:27
Estimated Creat Clear 78 ml/min 05/19/25 06:29
Total Bilirubin 1.1 mg/dl (0.2-1.3) 05/16/25 19:27
AST 33 U/L (17-59) 05/16/25 19:27
ALT 59 U/L (0-50) H 05/16/25 19:27
Alkaline Phosphatase 64 U/L (38-126) 05/16/25 19:27
C-Reactive Protein 265.00 mg/L (0.0-10.00) H 05/16/25 19:27
Most recent labs reviewed.
Micro Results:
05/16/25 19:27 Body Fluid Culture - Preliminary
Joint Fluid No Growth After 18-24 Hours
Gram Stain - Preliminary
SPEC : [id number] MASTER: 05/16/25-1926 STATUS: COMP REQ : [id number]
RECD: 05/16/25-[address]: Chyna GREEN, Benjamin
ENTERED: [birth year][address]: Ivy FINCH,Sabina Navarro
ROOPA FINCH, ARTURO
ORDERED: BF Cell Count, BF Crystals
QUERIES: What is the Body Fluid joint
Comment with DIFF
Date Specimen was Collected 05/16/25
Time Specimen was Collected 1904
Test Result Flag Reference
BF Cell Count - - -
BF WBC - 72192 - - /CUMM
BF PMN - 91.5 - - %
BF Mononuclear - 8.5 - - %
BF Crystals - - -
- Monosodium urate crystals seen.
Imaging:
05/16/2025 Duplex ultrasound right lower extremity: no evidence of DVT
05/16/2025 X-ray right knee: No acute fracture or dislocation. The joint spaces are maintained. Large suprapatellar joint effusion. Small suprapatellar enthesophyte. Tiny patellar marginal osteophytes. The soft tissues are unremarkable.
Care Review
Plan reviewed with: Physician (Dr. Gavin Ramírez. )
[2025-05-19] MEDS: COLCHICINE 0.6 MG PO (10:22)
[2025-05-19] MEDS: SOLU-MEDROL PF 125 MG IV (10:22)
--- NOTE | 2025-05-19 11:51 | W.PN.HOSP.TC ---
Today's Communication/Plan
-
dc to home after ortho performs knee aspiration and intra-articular steroids
Assessment / Plan
Assessment / Plan
Assessment:
R knee pain with effusion
- Knee Xray: No acute fracture or dislocation
- ESR 42, CRP 265.00
- s/p aspiration 05/17 with elevated WBC >57226 and high PMN ratio; culture negative x 48 hours. Appreciate ID; Abx stopped
- Likely gouty arthritis (monosodium urate crystals seen)
- start IV solu-medrol
- Orthopedics to aspirate and perform intra-articular steroids today
- DC on Prednisone taper and Colchicine BID, then daily colcichine
- has appointment as new patient with Rheumatology; Dr. Patel next week
CAD hx of [place] 03/2025 s/p stent
- follows with Dr. Fry
- on ASA/Brilinta/Statin
DVT ppx: SCDs
Code: Full
More than 30 minutes spent in discharge including
Final examination of the patient
Summarizing hospital stay
Instructions for continuing care to all relevant caregivers
Preparation of discharge records, prescriptions, and referral forms
Total time spent (in minutes): 41
Anticipated Discharge: Today
Subjective/Interval History
-
Date of Service: May 19, 2025
reports L knee pain as well as R knee pain
Cultures NGTD x 48 hours
Objective Data
-
Labs:
Laboratory Results
05/19/25
06:29
WBC 10.8
Hgb 12.9 L
Hct 37.0 L
Plt Count 295 D
Sodium 135
Potassium 4.4
Chloride 102
Carbon Dioxide 28
BUN 11
Creatinine 1.1
Glucose 122 H
Calcium 9.0
Vital Signs:
Vital Signs
Temp Pulse Resp BP Pulse Ox
99.1 F 68 16 125/74 96
05/19/25 07:42 05/19/25 07:42 05/19/25 07:42 05/19/25 07:42 05/19/25 07:42
I&O
05/18/25 05/19/25 05/20/25
06:59 06:59 06:59
Intake Total 1000 / 1000 1160 / 1160
Output Total 751 / 751
Balance 249 / 249 1160 / 1160
Physical Exam
-
General: No Apparent Distress
HEENT: Normocephalic
Respiratory: Negative Wheezes
Cardiac: Regular Rhythm
GI: Soft and Nontender
Musculoskeletal: Other (R knee large effusion, no erythema. Left knee small effusion, no ertythema. R Ankle mild edema)
Neuro: AO x 3
Psych: Calm
Data Reviewed
-
Total Time Spent with Patient (in minutes): 45
Labs: Labs Reviewed by me
--- NOTE | 2025-05-19 12:01 | W.DCSUMMARY ---
Discharge Summary
Discharge Data
Date of Admission: 05/16/25
Date of Discharge: 05/19/25
-
Pending Results: No
Hospital Course
55 y/o M, hx of CAD s/p stent 2 months prior, presented to ER on 05/16 with RLE knee swelling and warmth/redness. Patient had arthrocentesis in ER with fluid analysis showing monosodium urate crystal consistent with Gout. Cultures were negative x 48
hours and ID evaluated and stopped empiric antibiotics. Orthopedics did not recommend washout but did perform R Knee joint aspiration and intra-articular steroids prior to discharge. Patient was discharged on prednisone and colchicine. He will see
Rheumatology outpatient for initial consultation for Gout management next week. He was discharged home 05/19/25.
Discharge Plan
-
Patient Disposition: Home (Routine Discharge)
Discharge Diagnosis/Procedures: R knee gouty arthritis
Condition: Good
Diet: Low Cholesterol
Activity: As tolerated
Referrals:
Gaurav Correia MD [Family Provider]
Noe Patel MD [Active, Rheumatology]
Referral Note: keep scheduled appointment next week in [place]
Additional Discharge Medication Instructions: Colchicine and steroids prescribed for 10 days tentatively - Dr. Patel will evaluate at appointment for titration of Colchicine/Steroids and also chronic Gout treatment.
Prescriptions:
New
colchicine 0.6 mg Tablet
0.6 mg PO BID Qty: 20 0RF
oxycodone 5 mg Tablet
2.5 mg PO Q4HPRN PRN (Reason: moderate - severe pain) Qty: 15 0RF
prednisone 10 mg tablet
10 mg PO DIRECTED Qty: 30 0RF
Rx Instructions:
starting 05/20, take 50mg x 2 days, 40mg x 2 days, 30mg x 2 days, 20mg x 2 days, 10mg x 2 days
Continued
atorvastatin 80 mg tablet
80 mg PO DAILY
aspirin 81 mg tablet,chewable
81 mg PO DAILY
ticagrelor 90 mg tablet
90 mg PO BID
Discharge Orders:
Discharge Patient (As Directed); Ordered 05/19/25
Ordered By: Randall Ramírez
Discharge Date and Time
Print Language: KAZAKH
--- NOTE | 2025-05-19 14:07 | CM ---
Patient seen bedside.
Per patient no needs.
Spouse will transport.
has crutches for ambulation.
Plan: home no needs.
[2025-05-19 15:13] VITALS: BP 147/80
--- NOTE | 2025-05-19 15:57 | W.PN.UPDATE ---
Update Note
Progress Note Update
Mr. Reeder reports right knee pain improved. He was started on prednisone and colchicine today. His cultures at 48 hours are negative so his antibiotics have been stopped. He has been afebrile and the right knee still has a large effusion with
warmth and minimal pain to palpation. Range of motion 0-80 degrees with pain at the extreme of extension. No gross instability. Calf is soft and nontender. Distal neurovascular was intact. After discussing right knee aspiration/steroid
injection since his right knee pain is improving today he has decided to opt out of steroid portion and just undergo aspiration today. After sterile preparation the right knee was infiltrated with 5 ml lidocaine 1% without epinephrine then through
the same needle aspiration for 70 mL clear blood-tinged joint fluid and no intra-articular steroid injected. Compression with Pierre wrap and icing for the next 24 hours. Gradually progressed to full weightbearing and activities as tolerated. He
will follow-up with rheumatology next week to check his progress. Orthopedics will sign off.
== END 2025-05-19 16:52 | disposition home or self-care (01) | DRG 566 ==
LOC: 3 WEST ACU 22:20
PROVIDERS: Physician Assistant; Registered Nurse; ADMITTING PHYSICIAN Hospitalist; ATTENDING PHYSICIAN Internal Medicine; CONSULT PHYSICIAN Internal Medicine Infectious Disease; CONSULT PHYSICIAN Orthopaedic Surgery; EMERGENCY PHYSICIAN Emergency Medicine; FAMILY PHYSICIAN Student in an Organized Health Care Education/Training Program
DX: M25.461 Effusion, right knee (principal); M10.9 Gout, unspecified; I25.10 Atherosclerotic heart disease of native coronary artery without angina pectoris; Z95.5 Presence of coronary angioplasty implant and graft; I25.2 Old myocardial infarction; Z79.899 Other long term (current) drug therapy; M71.21 Synovial cyst of popliteal space [Baker], right knee
CPT/HCPCS: 20610; 73564; 80048; 80053; 85025; 85027; 85652; 86140; 86618; 87015; 87070; 87205; 89051; 89060; 93971; 96365; 96375; 99285

== ENCOUNTER 2025-06-14 06:34 | Outpatient (RCR) | payer BC, SELFPAY | END 2025-06-14 23:59 | disposition home or self-care (01) | LOC: CRHB 06:34 | PROVIDERS: ATTENDING PHYSICIAN Internal Medicine Cardiovascular Disease | DX: I25.2 Old myocardial infarction (principal); I25.10 Atherosclerotic heart disease of native coronary artery without angina pectoris (principal); Z95.5 Presence of coronary angioplasty implant and graft | CPT/HCPCS: 93797; 93798 ==